=== PATIENT | male | born 2005 | race African-American/Black ===

== ENCOUNTER 2024-03-29 13:54 | Emergency (ER) | payer OTHER, SELFPAY ==
[2024-03-29 14:11] VITALS: BP 156/84; PULSE 66; RESP 18; TEMP 36.9; O2SAT 98; BMI 30.2
--- NOTE | 2024-03-29 15:10 | EDNOTE_ITS ---
ED Skin Abcess FB-RME/HPI General Chief complaint: Skin/Abscess/Foreign Body Stated complaint: RIGHT EYEBROW LACERATION REOPENED Time Seen by Provider: 03/29/24 14:36 Source: patient Arrival date/time: 03/29/24 13:54 18-year-old male presented to the emergency department with complaints of a laceration in which she sustained from playing basketball yesterday. He reports that a medical professional during the game was able to skin glue his laceration and applying Steri-Strips. He did notice that the Steri-Strips were lifting prompting his ED visit today for evaluation of wound. Mode of arrival: ambulatory Related Data Allergies Allergy/AdvReac Type Severity Reaction Status Date / Time No Known Allergies Allergy Verified 03/29/24 13:55 Review of Systems Review of Systems Systems Reviewed: All systems reviewed, normal except as documented Narrative Review of Systems: Gen: No fever, no chills, no weight loss EYES: No discharge, no visual changes, no pain HEENT: No ear pain, no congestion, no sore throat PULM: No shortness of breath, no cough, no congestion CV: No chest pain, no dyspnea on exertion, no palpitations GI: No nausea, no vomiting, no diarrhea, no pain, no constipation : No frequency, no urgency,? no dysuria Musc/skel: No joint pain, no back pain Skin: + Frontal laceration right eyebrow ED Exam Narrative Physical exam: General: Sittiing in Exam table in no acute distress, answering questions appropriately HENT: normocephalic,+ close 2 cm laceration with glue and Steri-Strips no open wounds no skull tenderness or depressions. EOMI, PERRLA, moist mucous membranes Chest: chest wall is nontender Cardiac: regular rate and rhythm, normal S1 and S2, no murmurs, rubs, or gallops, capillary refill ?2 seconds Pulmonary: clear to auscultation bilaterally, no wheezing, crackles, or rhonchi Abdominal: active bowel sounds, soft, nontender, nondistended Neuro: A&OX3, CN II-XII intact, sensation grossly intact bilaterally in UE and LE. Skin: no rashes, no ecchymosis Ext: no lower extremity edema Course Quality Measures none Vital Signs Vital signs: Vital Signs Temperature 98.4 F 03/29/24 14:11 Pulse Rate 66 03/29/24 14:11 Respiratory Rate 18 03/29/24 14:11 Blood Pressure 156/84 H 03/29/24 14:11 Pulse Oximetry (%) 98 03/29/24 14:11 Oxygen Delivery Method Room Air 03/29/24 14:11 Skin / Abscess / Foreign Body MDM Narrative MDM Narrative:: 18-year-old male presented to the emergency department for wound recheck. I did notice Steri-Strips were completely falling off. However the wound is completely closed with skin glue. Reinforced Steri-Strips wound appears to be without signs of infection. At this time patient can follow-up with his doctor outpatient for wound recheck in 1 week. Patient does not need or warrant any other interventions in ED. Patient data External records reviewed:: [facility] previous records Clinical information provided by:: patient Social determinants that could affect healthcare access:: none Patient has the following chronic illnesses:: None How is presenting disease/condition affected by chronic disease/condition?: no chronic disease Evaluation data The following diagnostics were reviewed and interpreted by me:: other (specify) Lab and/or radiology exams considered but not ordered:: Yes it was considered Interpretation Summary: None Medications / Prescriptions Medications or Prescriptions considered but not ordered:: None Medication administrations:: None Consultations Consultation(s) initiated? (list below): No Diagnosis Skin/Abscess Differential Diagnosis: other Most likely diagnosis given after review of the tests above:: Encounter for wound re-check Admission Indicated Admission indicated?: not indicated Explain why admission is indicated or not indicated:: None Admission Request Was there a request for admission?: No Disposition Plan Disposition Plan: Discharge Discharge Attestation Discharge Attestation: The patient and all family members were given an opportunity to ask questions and understood the discharge instructions. Discharge instructions specifically effects, indications for sooner follow up or return to the emergency department, and the expected course of current diagnosis. Patient condition: Stable Discharge Plan Plan Patient Disposition: HOME (Self Care) Disposition Comment: Stable Patient condition on transfer: Stable Problem List Clinical Impression: Encounter for wound re-check Patient/Caregiver Discharge Instructions Discharge Activity: activity as tolerated Education Materials: ED Wound Care Additional Instructions: - Please do not pick or pull at the Steri-Strips they will reopen your wound. Keep area clean and dry follow-up with your primary doctor clinic for follow-up care. Print Language: Angolan Stand Alone Forms: Tsering Award Info., Patient Portal Info Letter PA/SHIPPING ROOM SUPERVISOR Supervising Physician PA/SHIPPING ROOM SUPERVISOR Supervising Physician: Dr Palomo
== END 2024-03-29 15:23 | disposition home or self-care (01) ==
PROVIDERS: Emergency Provider Emergency Medicine
DX: S01.111A Laceration without foreign body of right eyelid and periocular area, initial encounter (principal); X58.XXXA Exposure to other specified factors, initial encounter; Y93.67 Activity, basketball
CPT/HCPCS: 99281